=== PATIENT | male | born 1965 | race Caucasian/White ===

== ENCOUNTER 2024-03-08 14:44 | Outpatient (CLI) | payer OTHER | END 2024-03-08 14:50 | disposition home or self-care (01) | LOC: LAB 14:44 | PROVIDERS: ATTEND Preventive Medicine Occupational Medicine | DX: A49.1 Streptococcal infection, unspecified site (principal); A02.9 Salmonella infection, unspecified; K62.89 Other specified diseases of anus and rectum ==

== ENCOUNTER 2024-06-10 11:23 | Outpatient (CLI) | payer OTHER | END 2024-06-10 11:33 | disposition home or self-care (01) | LOC: PPH VACUNA 11:23 | PROVIDERS: ATTEND Emergency Medicine Pediatric Emergency Medicine | DX: Z23 Encounter for immunization (principal) ==

== ENCOUNTER → 2024-08-01 08:45 | Outpatient (CLI) | payer OTHER ==
[2024-08-03 08:05] LABS: HEPATITIS A ANTIBODY IGG Negative (Negative); HEPATITIS B SURFACE ANTIBODY Non Reactive (.); HEPATITIS C VIRUS ANTIBODY Non Reactive (Non Reactive)
== END | disposition home or self-care (01) ==
LOC: LAB 08:45
DX: A64 Unspecified sexually transmitted disease (principal); B19.0 Unspecified viral hepatitis with hepatic coma